=== PATIENT | female | born 1965 | race Caucasian/White ===

== ENCOUNTER 2016-10-15 10:37 | Emergency (ER) | payer OTHER ==
[2016-10-15 11:27] LABS: % IMMATURE GRANULYOCYTES 0.2 % (0.0-1.1); ABSOLUTE IMMATURE GRANULOCYTES 0.01 10^3/uL (0.00-0.10); ADD DIFF? NO; ADD MORPH? NO; ADD SCAN? NO; ATYPICAL LYMPHOCYTE FLAG 10 (0-99); FRAGMENT RBC FLAG 0 (0-99); HEMOGLOBIN 13.9 g/dL (12.6-16.3); LEFT SHIFT FLG 0 (0-99); LIPEMIA HEMOLYSIS FLAG 90 (0-99); MEAN CELL HEMOGLOBIN CONCENTR. 33.9 g/dL (32.4-36.7); MEAN CELL VOLUME 91.5 fL (81.5-99.8); MEAN PLATELET VOLUME 9.9 fL (8.7-11.7); PLATELET CLUMPS FLAG 0 (0-99); PLATELET COUNT 264 10^3/uL (150-400); RED BLOOD CELL COUNT 4.48 10^6/uL (4.18-5.33); RED CELL DISTRIBUTION WIDTH 12.6 % (11.5-15.2)
[2016-10-15] MEDS ORDERED: fentaNYL 100 MCG/2 ML INJ IVP ONE (11:35)
[2016-10-15] MEDS ORDERED: ONDANSETRON 4 MG/2 ML VIAL IVP ONE (11:35)
--- NOTE | 2016-10-15 11:36 | EDPHY ---
H & P Time Seen by Provider: 10/15/16 10:54 HPI/ROS: CHIEF COMPLAINT: Painful, swollen right breast HISTORY OF PRESENT ILLNESS: 51-year-old female presents to the emergency department with pain and swelling to her right breast over last 48 hours. She denies any known trauma or injury. She initially has pain in her right breast which felt like an ache 2 days ago which became worse yesterday. She has not noticed or express any discharge from the nipple. She denies pain in her right axilla. No fevers or chills. No symptoms in the left breast. She last had a mammogram probably 2 or 3 years ago. She is adopted so she does not know her family history. She denies chest pain or difficulty breathing. Denies rash. Denies abdominal pain. Denies calf pain or swelling. REVIEW OF SYSTEMS: Constitutional: No fever, no chills. Eyes: No double or blurry vision. ENT: No sore throat. Respiratory: No cough, no shortness of breath. Cardiac: No chest pain. Gastrointestinal: No abdominal pain, vomiting or diarrhea. Genitourinary: No dysuria. Musculoskeletal: No neck or back pain. Skin: No rashes. Neurological: No headache. Past Medical/Surgical History: Cholecystectomy, orthopedic injuries Social History: Smoking Status: Never smoked Physical Exam: General Appearance: Alert, no distress. Afebrile and in no apparent distress. Eyes: Pupils equal and round. Extraocular motions are all intact. ENT: Mouth: Mucous membranes moist. Respiratory: No wheezing, rhonchi, or rales, lungs are clear to auscultation. Cardiovascular: Regular rate and rhythm. Gastrointestinal: Abdomen is soft and nontender, no masses, no rebound or guarding, bowel sounds normal. Neurological: Alert and oriented x 3, cranial nerves II through XII grossly intact Skin: Right breast is swollen. There is some redness noted diffusely surrounding the superior, lateral and inferior aspect of the right breast. The right nipple around the area was beginning to invert. There is no discharge from the nipple. No palpable lump. No every a of fluctuance or obvious abscess. Nontender to palpate the right axilla. No palpable right axillary lymphadenopathy. Left breast is smaller compared to the right side without redness or pain. No palpable lumps. Nontender to palpate. Warm and dry, no rashes. Musculoskeletal: Nontender to palpate along the cervical, thoracic or lumbar spine. Neck is supple. Extremities: Full range of motion and no peripheral edema. Psychiatric: Patient is oriented X 3, there is no agitation. Constitutional: Initial Vital Signs Temperature (C) 36.5 C 10/15/16 10:40 Heart Rate 79 10/15/16 10:40 Respiratory Rate 18 10/15/16 10:40 Blood Pressure 152/97 H 10/15/16 10:40 O2 Sat (%) 99 10/15/16 10:40 O2 Delivery Mode Room Air Allergies/Adverse Reactions: No Known Allergies Allergy (Verified 10/15/16 10:44) Home Medications: Medication Instructions Recorded NK [No Known Home Meds] 10/15/16 Medical Decision Making - Diagnostics Imaging Results: Imaging Impressions Breast Ultrasound 10/15/16 11:07 Impression: 1. Irregular solid hypoechoic suspicious solid mass 9 o'clock position right breast. Ultrasound-guided needle core biopsy is recommended for histologic sampling. BI-RADS 5 2. Prominent lymph node in the right axilla. This can also be sampled to confirm the possibility of axillary metastasis. The results of this study were reviewed with the patient. The patient's primary care physician at [facility] will also be notified of these findings. Findings discussed with Monalisa Barragan PA-C at 13:35 hour, 10/15/2016. ED Course/Re-evaluation: 51-year-old female presents to the emergency department with right breast pain. The patient has some skin changes as well as inversion of the nipple. Breast ultrasound was obtained which revealed a suspicious solid 5 cm mass. The findings were discussed with the patient. I also discussed the findings with Dr. Iliana David who was on-call for her primary care provider. After talking with Dr. Rob Schneider, the patient's primary care provider will fax an order tomorrow for her to have an ultrasound-guided breast biopsy. Dr. Iliana David is aware that the findings on ultrasound are suspicious for cancerous mass. I do not think this patient has cellulitis. I do not think antibiotics are indicated. She is afebrile. She has no elevation of white blood cell count. The patient is aware that she should have the breast biopsy as soon as possible this week. She declined anything for pain. She will return if she has trouble obtaining a timely biopsy appointment or if she has any other concerns. Case was discussed with Dr. Yang Reich, secondary supervising physician, who did not directly evaluate the patient but agrees with treatment and plan. Differential Diagnosis: Including but not limited to carcinoma, cellulitis, mastitis, abscess - Data Points Laboratory Results: Laboratory Results 10/15/16 11:15 10/15/16 11:15 10/15/16 10/15/16 11:15 11:15 WBC 6.13 10^3/uL 10^3/uL (3.80-9.50) RBC 4.48 10^6/uL 10^6/uL (4.18-5.33) Hgb 13.9 g/dL g/dL (12.6-16.3) Hct 41.0 % % (38.0-47.0) MCV 91.5 fL fL (81.5-99.8) MCH 31.0 pg pg (27.9-34.1) MCHC 33.9 g/dL g/dL (32.4-36.7) RDW 12.6 % % (11.5-15.2) Plt Count 264 10^3/uL 10^3/uL (150-400) MPV 9.9 fL fL (8.7-11.7) Neut % (Auto) 64.0 % % (39.3-74.2) Lymph % (Auto) 26.8 % % (15.0-45.0) [place] % (Auto) 6.7 % % (4.5-13.0) Eos % (Auto) 1.8 % % (0.6-7.6) Baso % (Auto) 0.5 % % (0.3-1.7) Nucleat RBC Rel Count 0.0 % % (0.0-0.2) Absolute Neuts (auto) 3.93 10^3/uL 10^3/uL (1.70-6.50) Absolute Lymphs (auto) 1.64 10^3/uL 10^3/uL (1.00-3.00) Absolute Monos (auto) 0.41 10^3/uL 10^3/uL (0.30-0.80) Absolute Eos (auto) 0.11 10^3/uL 10^3/uL (0.03-0.40) Absolute Basos (auto) 0.03 10^3/uL 10^3/uL (0.02-0.10) Absolute Nucleated RBC 0.00 10^3/uL 10^3/uL (0-0.01) Immature Gran % 0.2 % % (0.0-1.1) Immature Gran # 0.01 10^3/uL 10^3/uL (0.00-0.10) Sodium 136 mEq/L mEq/L (134-144) Potassium 4.1 mEq/L mEq/L (3.5-5.2) Chloride 103 mEq/L mEq/L (97-110) Carbon Dioxide 24 mEq/l mEq/l (22-31) Anion Gap 9 mEq/L mEq/L (8-16) BUN 15 mg/dL mg/dL (7-23) Creatinine 1.0 mg/dL mg/dL (0.6-1.0) Estimated GFR 59 Glucose 84 mg/dL mg/dL (70-100) Calcium 9.8 mg/dL mg/dL (8.5-10.4) Medications Given: Discontinued Medications Fentanyl (Sublimaze) 50 mcg IVP EDNOW ONE Stop: 10/15/16 11:36 Last Admin: 10/15/16 13:42 Dose: Not Given Ondansetron HCl (Zofran) 4 mg IVP EDNOW ONE Stop: 10/15/16 11:36 Last Admin: 10/15/16 13:42 Dose: Not Given Departure - Departure Disposition: Home, Routine, Self-Care Clinical Impression: Breast mass, right Condition: Good Instructions: Breast Mass (ED) Additional Instructions: Somebody from [facility] will contact to tomorrow. They will fax an order to the hospital for you to have an outpatient scheduled ultrasound- guided biopsy of the mass in her right breast. Please try to arrange this in the next couple of days. You may wear supportive undergarments as discussed for comfort. Return if you developed worsening pain, fever, or if you feel worse in any way. Referrals: Ariane Worrell MD [Primary Care Provider] - 1-2 days without fail
[2016-10-15 11:44] LABS: ANION GAP 9 mEq/L (8-16); CALCIUM 9.8 mg/dL (8.5-10.4); CARBON DIOXIDE 24 mEq/l (22-31); CHLORIDE 103 mEq/L (97-110); GLOMERULAR FILTRATION RATE 59; GLUCOSE 84 mg/dL (70-100); POTASSIUM 4.1 mEq/L (3.5-5.2); SODIUM 136 mEq/L (134-144)
[2016-10-15 14:08] VITALS: BP 124/67; PULSE 74; RESP 16; TEMP 98.2; O2SAT 97
== END 2016-10-15 14:07 | disposition home or self-care (01) ==
DX: N63 Unspecified lump in breast (principal)